=== PATIENT | female | born 1985 | race African-American/Black ===

== ENCOUNTER 2016-07-11 05:31 | Emergency (ER) | payer OTHER ==
[~2016-07-11] VITALS: Ht 160 cm; Wt 54.5 kg
[2016-07-11] MEDS ORDERED: PREN-154 PO (05:42)
[2016-07-11] MEDS ORDERED: ACETAMINOPHEN 325 MG TABLET PO ONE (06:15)
[2016-07-11 08:12] VITALS: BP 115/71
== END 2016-07-11 08:14 | disposition home or self-care (01) ==
LOC: EMS 05:33
DX: O9A.212 Injury, poisoning and certain other consequences of external causes complicating pregnancy, second trimester (principal); S86.812A Strain of other muscle(s) and tendon(s) at lower leg level, left leg, initial encounter; S39.91XA Unspecified injury of abdomen, initial encounter; F17.200 Nicotine dependence, unspecified, uncomplicated; Y08.89XA Assault by other specified means, initial encounter; Y93.89 Activity, other specified; Y92.9 Unspecified place or not applicable; Y99.9 Unspecified external cause status
CPT/HCPCS: 76801; 76817; 99284